=== PATIENT | male | born 1955 | race Caucasian/White ===

== ENCOUNTER → 2022-12-14 16:26 | Outpatient (REF) | payer MEDICARE, OTHER, SELFPAY | LOC: ANHLAB 16:26 | PROVIDERS: PCP Family Medicine; Visit Provider Plastic Surgery | DX: D48.5 Neoplasm of uncertain behavior of skin (principal) | CPT/HCPCS: 88305 ==

== ENCOUNTER 2023-01-14 13:23 | Emergency (ER) | payer MEDICARE, OTHER, SELFPAY ==
[2023-01-14 13:42] VITALS: BP 133/76; PULSE 84; RESP 18; TEMP 36.5; O2SAT 95
--- NOTE | 2023-01-14 13:42 | ED.URI ---
HPI - URI/Sore Throat General Chief Complaint: Upper Respiratory Infection Stated Complaint: chest congestion Time Seen by Provider: 01/14/23 13:50 Source: patient Mode of arrival: ambulatory Limitations: no limitations History of Present Illness HPI Narrative: There is a 67-year-old male patient presenting to the clinic today with complaints of cough and chest congestion x1 week. Reports he is having wheezing. Denies any shortness of breath or chest pain. Denies any fever or chills. States he is bringing up some clear phlegm and at times it may be green tinged. MD elicited complaint: sore throat and nasal congestion Related Data Home Medications Medication Instructions Recorded Confirmed ascorbate calcium (vitamin C) 500 500 mg PO DAILY 09/02/21 12/14/22 mg tablet cholecalciferol (vitamin D3) 25 25 mcg PO DAILY 09/02/21 12/14/22 mcg (1,000 unit) capsule inulin 2 gram chewable tablet g PO 09/02/21 12/14/22 (Fiber Gummies) orczdudshopq-kqe-mghyi acid-vit 1 tablet PO DAILY 09/02/21 12/14/22 K-lycop 400 mcg-20 mcg-370 mcg tablet (Men's 50 Plus Multivitamin) zinc acetate 50 mg (zinc) capsule 50 mg PO .every other day 09/02/21 12/14/22 (Galzin) Allergies Allergy/AdvReac Type Severity Reaction Status Date / Time No Known Allergies Allergy Unknown Verified 12/14/22 16:01 Review of Systems Review of Systems: Pertinent positives per HPI. Patient denies any fever, chills, rash, headache, visual changes, dizziness, shortness of breath, chest pain, palpitations, nausea, vomiting, diarrhea, constipation, abdominal pain, or any urinary issues. [facility] Past Medical History Medical History (Updated 01/14/23 @ 13:46 by Delbert Dent APRN) Changing skin lesion Cystic meniscus, other lateral meniscus, right knee Establishing care with new doctor, encounter for Inguinal bulge Screening for lipid disorders Screening for prostate cancer Surgical History Surgical History History of cholecystectomy Family History Family History Father Melanoma Grandparent Diabetes mellitus Social History Social History (Updated 12/14/22 @ 15:51 by Tamra Flores MA) Smoking status: Never smoker Alcohol intake: current Drinks per week: 2 Alcohol use details: beer Lack of Transportation: No Lack of Food: Never True Current Housing: I Have Housing Concerned About Future Housing: No Difficulty Paying Gas/Electric Bills: No Difficulty Paying for Meds: No Currently Unemployed: No Education: Master's Degree or Higher Difficulty w/ Childcare or Family Care: No Living arrangements: with family Occupation/Education: retired Gender identity (if verbalized by the patient): Male Sexual Orientation (if Verbalized by the Patient): Straight or Heterosexual Spiritual care concerns: No Agree to blood products: Yes Comments At the time of my signature, I reviewed and agree with the nursing past medical, surgical, social, and family history. There is no relevant family history pertinent to the patient complaint. Exam Narrative: General: Well-developed, well nourished, in no apparent distress Head: Normocephalic, atraumatic Eyes: Pupils equally round and reactive to light bilaterally, EOM intact, sclera and conjunctive clear, no discharge, lids normal Ears: TMs intact and clear, ear canals clear, no drainage, grossly hearing normal. Nose: Nares patent, no discharge, no inflammation, no sinus tenderness. Mouth: Oral pharynx without lesions or masses, good dentition, MMM. Neck: Supple, trachea midline, no enlargement of anterior or posterior cervical nodes, no thyroid masses or goiter palpable. Cardio: Regular rate and rhythm, s1 and s2 normal, no murmur appreciated. Resp: Expiratory wheezing throughout lung patterson, no rhonchi, rales, or rub
== END 2023-01-14 13:56 | disposition home or self-care (01) ==
PROVIDERS: Emergency Provider Nurse Practitioner Family; PCP Family Medicine
DX: J40 Bronchitis, not specified as acute or chronic (principal)
CPT/HCPCS: 99213; G0463

== ENCOUNTER 2023-01-22 09:20 | Emergency (ER) | payer MEDICARE, OTHER, SELFPAY ==
--- NOTE | ~2023-01-22 | XR_ITS ---
EXAMINATION: XR chest 2V DATE: 01/22/2023 10:51 INDICATION: Left lower lobe crackles. Cough. TECHNIQUE: Frontal and lateral views of the chest were obtained. COMPARISON: None. FINDINGS: There are airspace opacities in left lower lung zone. No pleural effusion or pneumothorax. The heart size is normal. Surgical clips in the right upper quadrant are likely from cholecystectomy. IMPRESSION: 1. Airspace opacities in left lower lung zone, consistent with atelectasis versus pneumonia. Reviewed, dictated and finalized at location A. STMENT SALES ASSISTANT IMPRESSION: 1. Airspace opacities in left lower lung zone, consistent with atelectasis vers us pneumonia.
[2023-01-22 09:59] VITALS: BP 139/88; PULSE 71; RESP 18; TEMP 36.4; O2SAT 96
--- NOTE | 2023-01-22 10:14 | ED.GENADULT ---
HPI - General Adult General Chief complaint: Upper Respiratory Infection Stated complaint: wheezing,congestion History of Present Illness HPI narrative: 67-year-old male patient [facility] today with complaints of continuing productive cough with yellow phlegm, wheezing, and feeling unwell. patient was seen here on 01/14 and diagnosed with acute bronchitis and was prescribed a 5 day course of prednisone and an albuterol inhaler. Patient states he has been using albuterol inhaler every 4-6 hours daily while awake and finished his prednisone treatment. patient states that he thought he was feeling better after the prednisone but then has continued to worsen after the dose pack was completed. Patient denies fevers, chills, body aches, dyspnea, nausea/ vomiting, and diarrhea. patient confirms shortness of breath when coughing. Related Data Home Medications Medication Instructions Recorded Confirmed ascorbate calcium (vitamin C) 500 500 mg PO DAILY 09/02/21 01/22/23 mg tablet cholecalciferol (vitamin D3) 25 25 mcg PO DAILY 09/02/21 01/22/23 mcg (1,000 unit) capsule inulin 2 gram chewable tablet 2 g PO DAILY 09/02/21 01/22/23 (Fiber Gummies) bijvpzotlsds-bht-nokgw acid-vit 1 tablet PO DAILY 09/02/21 01/22/23 K-lycop 400 mcg-20 mcg-370 mcg tablet (Men's 50 Plus Multivitamin) zinc acetate 50 mg (zinc) capsule 50 mg PO .every other day 09/02/21 01/22/23 (Galzin) Allergies Allergy/AdvReac Type Severity Reaction Status Date / Time No Known Allergies Allergy Unknown Verified 01/22/23 09:56 Review of Systems Review of Systems: CONSTITUTIONAL: Denies fever, chills, or sweats. patient reports overall general unwell feeling. EYES: Denies visual changes, redness, or discharge. ENT: Denies rhinorrhea, congestion, sore throat, or otalgia. CARDIOVASCULAR: Denies chest pain, palpitations, or edema. RESPIRATORY: positive productive cough and dyspnea when coughing, positive wheezing. reports using albuterol inhaler every 4-6 hours while awake. GASTROINTESTINAL: Denies abdominal pain, nausea, vomiting, or diarrhea. GENITOURINARY: Denies dysuria or hematuria. SKIN: Denies rash or itching. MUSCULOSKELETAL: Denies back pain, joint pain, or myalgia. NEUROLOGIC: Denies headache, numbness, or weakness. PSYCHIATRIC: Denies anxiety or depression. [facility], [facility] Past Medical History Medical History (Updated 01/22/23 @ 11:08 by PHUONG Bazan) Changing skin lesion Cystic meniscus, other lateral meniscus, right knee Establishing care with new doctor, encounter for Inguinal bulge Screening for lipid disorders Screening for prostate cancer Surgical History Surgical History History of cholecystectomy Family History Family History Father Melanoma Grandparent Diabetes mellitus Social History Social History (Updated 12/14/22 @ 15:51 by Tamra Flores MA) Smoking status: Never smoker Alcohol intake: current Drinks per week: 2 Alcohol use details: beer Lack of Transportation: No Lack of Food: Never True Current Housing: I Have Housing Concerned About Future Housing: No Difficulty Paying Gas/Electric Bills: No Difficulty Paying for Meds: No Currently Unemployed: No Education: Master's Degree or Higher Difficulty w/ Childcare or Family Care: No Living arrangements: with family Occupation/Education: retired Gender identity (if verbalized by the patient): Male Sexual Orientation (if Verbalized by the Patient): Straight or Heterosexual Spiritual care concerns: No Agree to blood products: Yes Exam Narrative: GENERAL: ill-appearing, well-nourished, and in no acute distress. HEAD: Normocephalic, atraumatic. EYES: PERRLA and EOMI. ENT: Nares clear, no rhinorrhea or epistaxis. Mucous membranes moist. NECK: Supple. No lymphadenopat
== END 2023-01-22 11:12 | disposition home or self-care (01) ==
PROVIDERS: Emergency Provider Nurse Practitioner Family; PCP Family Medicine
DX: J18.9 Pneumonia, unspecified organism (principal); Z79.899 Other long term (current) drug therapy; Z79.4 Long term (current) use of insulin
CPT/HCPCS: 71046; 99213; G0463

== ENCOUNTER 2023-02-13 09:44 | Outpatient (CLI) | payer MEDICARE, OTHER, SELFPAY ==
--- NOTE | ~2023-02-13 | XR_ITS ---
EXAMINATION: XR chest 2V DATE: 02/13/2023 10:01 INDICATION: Chronic cough TECHNIQUE: PA and lateral views of the chest are obtained. COMPARISON: 01/22/2023 FINDINGS: The lungs are free of acute opacities. No pleural effusion or pneumothorax. The cardiomedia stinal silhouette is normal. There is moderate thoracic spondylosis. Surgical clips in the right uppe r quadrant are likely from prior cholecystectomy. IMPRESSION: 1. No acute cardiopulmonary abnormality. Reviewed, dictated and finalized at location B. HASING ANALYST
== END 2023-02-13 09:45 | disposition home or self-care (01) ==
PROVIDERS: PCP Family Medicine; Visit Provider Family Medicine
DX: R05.3 Chronic cough (principal)
CPT/HCPCS: 71046

== ENCOUNTER 2023-04-18 01:38 | Day surgery (SDC) | payer MEDICARE, OTHER, SELFPAY ==
[2023-03-23 10:10] VITALS: BMI 29.8
[2023-04-18 08:08] VITALS: BP 132/93; PULSE 88; RESP 18; TEMP 36.5; O2SAT 97; BMI 30.8
[2023-04-18] MEDS: LACTATED RINGERS 1,000 ML 150 ML IV CONT (08:47)
--- NOTE | 2023-04-18 09:14 | PM.HPGS ---
History of Present Illness History of Present Illness Consent: Risks, benefits, and alternatives have been discussed and questions answered. Patient agrees to proceed with procedure. Chief complaint: neoplasm screening Narrative: Naveed Welch is a 68 year old male with colon polyp 5 years ago Review of Systems Constitutional: Constitutional: Denies headache(s) and Denies weakness Eyes: Eyes: Denies blurry vision ENT: Reports Normal hearing present, Denies headache(s) and Denies neck pain Cardiovascular: Cardiovascular: Denies chest pain and Denies dyspnea Respiratory: Respiratory: Denies dyspnea Gastrointestinal: Gastrointestinal: Reports no additional gastrointestinal complaints Genitourinary: Genitourinary: Denies dysuria Musculoskeletal: Musculoskeletal: Denies neck pain Integumentary/Breasts: Skin/Breast: Denies dry skin Neurologic: Reports Normal hearing present, Denies headache(s) and Denies weakness Psychiatric: Psychiatric: Denies anxiety Endocrine: Endocrine: Denies change in body appearance Hematologic/Lymphatic: Hematologic/Lymphatic: Denies easy bleeding Allergic/Immunologic: Allergic/Immunologic: Denies urticaria PMFSH Past Medical History Medical History (Updated 04/18/23 @ 09:14 by Gordo Rosario MD) BMI 31.0-31.9,adult Changing skin lesion Chronic cough Colon polyp Cystic meniscus, other lateral meniscus, right knee Establishing care with new doctor, encounter for Inguinal bulge Left hand pain Screening for lipid disorders Screening for prostate cancer Trigger middle finger of left hand Surgical History Surgical History History of cholecystectomy Family History Family History Father Melanoma Multiple myeloma Grandparent Diabetes mellitus Mother No problems noted. Sibling No problems noted. 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 Gender identity (if verbalized by the patient): Male Sexual Orientation (if Verbalized by the Patient): Straight or Heterosexual Spiritual care concerns: No Agree to blood products: Yes Meds Home Medications and Allergies Home Medications Medication Instructions Recorded Confirmed Type ascorbate calcium (vitamin C) 500 500 mg PO DAILY 09/02/21 04/18/23 History mg tablet inulin 2 gram chewable tablet 2 g PO DAILY 09/02/21 04/18/23 History (Fiber Gummies) cvytxrayotdw-wkh-moqsz acid-vit 1 tablet PO DAILY 09/02/21 04/18/23 History K-lycop 400 mcg-20 mcg-370 mcg tablet (Men's 50 Plus Multivitamin) zinc acetate 50 mg (zinc) capsule 50 mg PO .every other day 09/02/21 04/18/23 History (Galzin) Allergies Allergy/AdvReac Type Severity Reaction Status Date / Time No Known Allergies Allergy Unknown Verified 04/18/23 08:16 Vital Signs Vital Signs - 24 hr 04/18/23 08:08 Temperature 97.7 F Pulse Rate 88 Respiratory Rate 18 Blood Pressure 132/93 H Pulse Oximetry 97 Oxygen Delivery Room Air Exam Const: General: comfortable and no acute distress HENMT: Face/Nose/Sinus: Normal nares present Eyes: General: appearance normal, both eyes and all related structures
--- NOTE | 2023-04-18 09:20 | WPDANESEPPF ---
Anes - Initial Pre Proc Eval Procedure: Operation Date: 04/18/23 09:30 Proposed Procedures p Screening Colonoscopy - Gordo Rosario MD Date/Time: 04/18/23 09:20 Surgeon: Gordo Rosario MD Pre Op Diagnosis: neoplasm screening Patient Data Age: 68 Gender: M Height: 1.7 m Weight: 89.3 kg Last Vital Signs Temp 97.7 F 04/18/23 08:08 Pulse 88 04/18/23 08:08 Resp 18 04/18/23 08:08 BP 132/93 H 04/18/23 08:08 Pulse Ox 97 04/18/23 08:08 O2 Del Method Room Air 04/18/23 08:08 Allergies Allergy/AdvReac Type Severity Reaction Status Date / Time No Known Allergies Allergy Unknown Verified 04/18/23 08:16 Home Medications Medication Instructions Recorded Confirmed Type ascorbate calcium (vitamin C) 500 500 mg PO DAILY 09/02/21 04/18/23 History mg tablet inulin 2 gram chewable tablet 2 g PO DAILY 09/02/21 04/18/23 History (Fiber Gummies) fwvcwidnepyh-dbh-fzzee acid-vit 1 tablet PO DAILY 09/02/21 04/18/23 History K-lycop 400 mcg-20 mcg-370 mcg tablet (Men's 50 Plus Multivitamin) zinc acetate 50 mg (zinc) capsule 50 mg PO .every other day 09/02/21 04/18/23 History (Galzin) Patient hx anesthesia problems: none Family hx anesthesia problems: none Results Review: All pre-operative results and documents have been reviewed as part of the pre-operative evaluation. [facility] Past Medical History Medical History (Updated 04/18/23 @ 09:14 by Gordo Rosario MD) BMI 31.0-31.9,adult Changing skin lesion Chronic cough Colon polyp Cystic meniscus, other lateral meniscus, right knee Establishing care with new doctor, encounter for Inguinal bulge Left hand pain Screening for lipid disorders Screening for prostate cancer Trigger middle finger of left hand Surgical History Surgical History History of cholecystectomy Family History Family History Father Melanoma Multiple myeloma Grandparent Diabetes mellitus Mother No problems noted. Sibling No problems noted. 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 Gender identity (if verbalized by the patient): Male Sexual Orientation (if Verbalized by the Patient): Straight or Heterosexual Spiritual care concerns: No Agree to blood products: Yes Anes - Eval Final PreProcedure Day of Procedure 04/18/23 09:20 Patient weight: obese Heart: regular rate and rhythm Lungs: clear to auscultation Airway: Mallampati scale class II Neurological: alert and oriented Last oral intake: >/= 8 hours ASA classification: II Emergent: no Anesthetic plan: proceed Anesthesia type and monitoring: general GIVS and standard monitoring Results Review: All pre-operative results and documents have been reviewed as part of the pre-operative evaluation. Informed Consent: The patient's anesthetic plan and its attendant risks and benefits were discussed with the patient/family/POA. Questions were solicited and answers provided to the satisfaction of the patient/family/POA.
[2023-04-18 09:38] VITALS: BP 96/65; PULSE 83; RESP 15; O2SAT 95
[2023-04-18 09:48] VITALS: BP 110/84; PULSE 95; RESP 23; O2SAT 99
[2023-04-18 09:58] VITALS: BP 119/85; PULSE 85; RESP 19; O2SAT 98
== END 2023-04-18 10:15 | disposition home or self-care (01) ==
PROVIDERS: PCP Family Medicine; Visit Provider Internal Medicine Gastroenterology
PROC: 0DJD8ZZ Inspection of Lower Intestinal Tract, Via Natural or Artificial Opening Endoscopic (ICD-10-PCS; CPT 45378; principal; 2023-04-18 09:30)
DX: Z12.11 Encounter for screening for malignant neoplasm of colon (principal); Z86.010 Personal history of colon polyps; E66.9 Obesity, unspecified; Z68.30 Body mass index [BMI] 30.0-30.9, adult
CPT/HCPCS: G0105; J2704; J7120

== ENCOUNTER 2023-07-25 16:39 | Emergency (ER) | payer MEDICARE, OTHER, SELFPAY ==
[2023-07-25 16:40] VITALS: BP 152/96; PULSE 76; RESP 20; TEMP 36.6; O2SAT 96
--- NOTE | 2023-07-25 17:32 | ED.GENADULT ---
HPI - General Adult General Chief complaint: Wound/Laceration Stated complaint: nasal injury Time Seen by Provider: 07/25/23 16:58 Source: patient Mode of arrival: ambulatory Limitations: no limitations History of Present Illness HPI narrative: This is a 68-year-old male who presents to the ED with chief complaint of nose laceration injury that occurred just prior to arrival. Patient was unloading a smoker out of the back of a truck. Reports that he lost his strategy director and a came down and gas to his nose. Denies any further sites of pain or injury. Denies LOC. Denies blood thinner use Related Data Home Medications Medication Instructions Recorded Confirmed ascorbate calcium (vitamin C) 500 500 mg PO DAILY 09/02/21 06/30/23 mg tablet inulin 2 gram chewable tablet 2 g PO DAILY 09/02/21 06/30/23 (Fiber Gummies) nizzxqumpvpm-enh-uxyni acid-vit 1 tablet PO DAILY 09/02/21 06/30/23 K-lycop 400 mcg-20 mcg-370 mcg tablet (Men's 50 Plus Multivitamin) Allergies Allergy/AdvReac Type Severity Reaction Status Date / Time No Known Allergies Allergy Unknown Verified 07/25/23 17:22 Review of Systems Review of Systems: All systems as dictated in HPI [facility] Past Medical History Medical History BMI 31.0-31.9,adult BMI 32.0-32.9,adult Changing skin lesion Chronic cough Colon polyp Cystic meniscus, other lateral meniscus, right knee Elevated PSA Establishing care with new doctor, encounter for Inguinal bulge Inguinal hernia Left hand pain Screening for lipid disorders Screening for prostate cancer Trigger middle finger of left hand Surgical History Surgical History History of cholecystectomy Family History Family History Father Melanoma Multiple myeloma Grandparent Diabetes mellitus Mother No problems noted. Sibling No problems noted. 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 HEAD: Normocephalic, atraumatic. MSK: Normal range of motion. No edema. SKIN: 1.5 cm flap laceration to the left distal nose, no active bleeding. Warm, dry, no rash. NEURO: Alert and oriented x3. No focal deficits. PSYCH: Normal mood and affect. Course Vital Signs Vital signs: Vital Signs Temperature 97.9 F 07/25/23 16:40 Pulse Rate 76 07/25/23 16:40 Respiratory Rate 20 07/25/23 16:40 Blood Pressure 152/96 H 07/25/23 16:40 Pulse Oximetry 96 07/25/23 16:40 Oxygen Delivery Room Air 07/25/23 16:40 Temperature 97.9 F 07/25/23 16:40 Pulse Rate 76 07/25/23 16:40 Respiratory Rate 20 07/25/23 16:40 Blood Pressure 152/96 H 07/25/23 16:40 Pulse Oximetry 96 07/25/23 16:40 Oxygen Delivery Room Air 07/25/23 16:40 Procedures Laceration Laceration 1: Date: 07/25/23 Time: 17:52 Sit
== END 2023-07-25 18:05 | disposition home or self-care (01) ==
PROVIDERS: Emergency Provider Physician Assistant; PCP Family Medicine
DX: S01.21XA Laceration without foreign body of nose, initial encounter (principal); Z86.010 Personal history of colon polyps; W20.8XXA Other cause of strike by thrown, projected or falling object, initial encounter
CPT/HCPCS: 12011; 99282

== ENCOUNTER 2023-08-08 16:50 | Emergency (ER) | payer MEDICARE, OTHER, SELFPAY ==
--- NOTE | ~2023-08-08 | XR_ITS ---
EXAMINATION: XR chest 2V Exam Date/Time: 08/08/2023 17:04 CDT HISTORY: cough, sob for 3 days,never smoker Comparison: 02/13/2023, 01/22/2023. RESULT: Lines, tubes, and devices: Cholecystectomy clips. Lungs and pleura: Left basilar scar/atelectasis. 9 mm nodular opacity in the right midlung. No focal consolidation, pleural effusion, or pneumothorax. Cardiomediastinal silhouette: Stable. Other: No acute osseous or upper abdominal finding. IMPRESSION: No acute cardiopulmonary process. 9 mm right midlung nodular opacity, may represent a pulmonary nodule, rib bone island, or old healed rib fracture. Consider nonemergent but timely outpatient low-dose noncontrast CT of the chest for fur ther evaluation. Reviewed, dictated and finalized at [facility]. IMPRESSION: No acute cardiopulmonary process. 9 mm right midlung nodular opacity, may represent a pulmonary nodule, rib bone island, or old healed rib fracture. Consider nonemergent but timely outpatient low-dose noncontrast CT of the chest for further evaluation.
--- NOTE | 2023-08-08 16:52 | ED.URI ---
HPI - URI/Sore Throat General Chief Complaint: Upper Respiratory Infection Stated Complaint: wheezing Time Seen by Provider: 08/08/23 17:05 Source: patient and RN notes reviewed Mode of arrival: ambulatory Limitations: no limitations History of Present Illness HPI Narrative: 68-year-old male presents with concern for cough, chest congestion, nasal drainage and nasal congestion for 4 days. Reports history of pneumonia. Reports he has been taking Mucinex MD elicited complaint: cough Related Data Home Medications Medication Instructions Recorded Confirmed ascorbate calcium (vitamin C) 500 500 mg PO DAILY 09/02/21 08/08/23 mg tablet zhasbqjtmqic-kpx-xfjkg acid-vit 1 tablet PO DAILY 09/02/21 08/08/23 K-lycop 400 mcg-20 mcg-370 mcg tablet (Men's 50 Plus Multivitamin) inulin 2,500 mg-vitamin D3 500 1 tablet PO .QD 08/03/23 08/08/23 unit chewable tablet (Fiber Gummies with Vitamin D3) Allergies Allergy/AdvReac Type Severity Reaction Status Date / Time No Known Allergies Allergy Unknown Verified 08/08/23 16:53 Review of Systems Review of Systems: CONSTITUTIONAL: Reports malaise. Denies chills, sweats, or fever. EYES: Denies visual changes, redness, or discharge. ENT: Reports rhinorrhea, congestion. Denies sinus pain, otalgia and sore throat. CARDIOVASCULAR: Denies chest pain, palpitations, or edema. RESPIRATORY: Reports cough, chest congestion, dyspnea. GASTROINTESTINAL: Denies abdominal pain, nausea, vomiting, diarrhea SKIN: Denies rash or itching. MUSCULOSKELETAL: Denies myalgia. NEUROLOGIC: Denies headache. All systems reviewed & are unremarkable except as noted in HPI and below PMFSH Past Medical History Medical History (Updated 08/08/23 @ 17:31 by Virginia Perera NP) BMI 32.0-32.9,adult Changing skin lesion Chronic cough Colon polyp Cystic meniscus, other lateral meniscus, right knee Elevated PSA Establishing care with new doctor, encounter for Inguinal bulge Inguinal hernia Left hand pain Nasal laceration Screening for lipid disorders Screening for prostate cancer Trigger middle finger of left hand Surgical History Surgical History History of cholecystectomy Family History Family History Father Melanoma Multiple myeloma Grandparent Diabetes mellitus Mother No problems noted. Sibling No problems noted. 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 There is no relevant family history pertinent to the presenting complaint Exam Narrative: GENERAL: Nontoxic-appearing, well-nourished, and in no acute distress. HEAD: Normocephalic EYES: PERRLA, conjunctivae clear ENT: Nares clear. Mucous membranes moist. TM pearly hayden with dull light reflex bilaterally; no tragal tenderness. Oropharynx not erythematous without lesions. Tonsils not enlarged
[2023-08-08 16:59] VITALS: BP 142/91; PULSE 70; RESP 16; TEMP 36.7; O2SAT 97
== END 2023-08-08 17:35 | disposition home or self-care (01) ==
PROVIDERS: Emergency Provider Nurse Practitioner; PCP Family Medicine
DX: R05.9 Cough, unspecified (principal)
CPT/HCPCS: 71046; 99213; G0463

== ENCOUNTER 2023-08-29 07:25 | Outpatient (CLI) | payer MEDICARE, OTHER, SELFPAY ==
--- NOTE | ~2023-08-29 | CT_ITS ---
EXAMINATION:CT diagnostic chest w con DATE: 08/29/2023 07:52 INDICATION: Solitary pulmonary nodule. Abnormal chest radiograph. TECHNIQUE: Computed tomography (CT) of the chest was performed with 75 mL Omnipaque 350 intravenous c ontrast. Automated exposure control and iterative reconstruction technique were employed. The dose-le ngth product (DLP) was 378.43 mGy-cm. COMPARISON: Chest 2 views 08/08/2023 FINDINGS: The lungs demonstrate minimal atelectasis. There is no abnormal correlate for the chest rad iograph finding. There is a 6 mm nodule in right lower lobe. No pleural effusion. The heart size is n ormal. No pericardial effusion. 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 There is mild b ilateral gynecomastia. There are changes of cholecystectomy. There is mild thoracic spondylosis. Ther e is mild chronic anterior wedging of multiple vertebral bodies. IMPRESSION: 1. 6 mm pulmonary nodule, probably benign. Consider noncontrast low-dose chest CT in 6-12 months. Reviewed, dictated and finalized at location A.
[2023-08-29 07:46] LABS: Estimated Glomerular Filt Rate > 60
== END 2023-08-29 07:26 | disposition home or self-care (01) ==
PROVIDERS: PCP Family Medicine; Visit Provider Physician Assistant Medical
DX: R91.1 Solitary pulmonary nodule (principal)
CPT/HCPCS: 71260; Q9967

== ENCOUNTER 2024-09-03 08:51 | Outpatient (CLI) | payer MEDICARE, OTHER, SELFPAY ==
--- NOTE | ~2024-09-03 | CT_ITS ---
CT of the Abdomen and Pelvis: Indication: Aortic ectasia Technique: 2.5 mm axial scans were obtained through the abdomen and pelvis following intravenous adm inistration of 100 cc of Omnipaque 350. Dose reduction technique was used on this scan by utilizing a utomated exposure control and iterative reconstruction technique. The dose-length product (DLP) was 6 69.63 mGy-cm. Findings: Scans through the lung bases are unremarkable. The liver, spleen, pancreas, adrenals and kidneys are within normal limits. Cholecystectomy clips are present. No evidence of aortic aneurysm or dissection. There is minimal atherosclerotic calcificatio n of the abdominal aorta. No lymphadenopathy. No bowel obstruction or bowel wall thickening. There is no evidence to suggest acute appendicitis. Images through the pelvis were performed. Urinary bladder unremarkable. Prostate gland is significant ly enlarged. No ascites. Impression: Minimal atherosclerotic disease of the aorta. No aneurysm or dissection. Enlarged prostate gland. Reviewed, dictated and finalized at location . Impression: Minimal atherosclerotic disease of the aorta. No aneurysm or dissection. Enlarged prostate gland.
--- NOTE | ~2024-09-03 | CT_ITS ---
Clinical Indication: Pulmonary nodule CT Scan of the Chest with Contrast: Technique: Contiguous sections were acquired throughout the chest after intravenous administration of 75 cc of Omnipaque 350. Dose reduction technique was used on this scan by utilizing automated exposu re control and iterative reconstruction technique. The dose-length product (DLP) was 0.00 mGy-cm. COMPARISON: 08/29/2023 Findings: There is no evidence of any significant mediastinal, hilar or axillary lymphadenopathy. Vascular stru ctures are unremarkable. There is no evidence of aortic dissection or aneurysm. There is no evidence of pleural or pericardial effusion. Stable 6 mm nodule the right peripheral right lung base (axial image 95).. Images through the upper abdomen reveal no abnormalities. Impression: Stable 6 mm right basilar pulmonary nodule, as detailed above. Reviewed, dictated and finalized at [facility]. Impression: Stable 6 mm right basilar pulmonary nodule, as detailed above.
--- OUTSIDE RECORDS SUMMARY | 2024-09-03 08:59 | XMS_ITS | Clinical Summary ---
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 Legal Sex Male 8:00 PM CDT Gender Identity Male 02/06/2023 3:12 PM 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 PAINTER Sexual Orientation Not on file Last Filed Vital Signs Vital Sign Reading Time Taken Comments Blood Pressure - - Pulse - - Temperature - - Respiratory Rate - - Oxygen Saturation - - Inhaled Oxygen Concentration - - Weight 86.2 kg (190 lb) 02/02/2023 4:31 PM PORTRAIT PAINTER Height 170.2 cm (5' 7) 02/02/2023 4:31 PM PORTRAIT PAINTER Body Mass Index 29.76 02/02/2023 4:31 PM PORTRAIT PAINTER Plan of Treatment Health Maintenance Due Date Last Done Comments Colorectal Cancer Screening Colonoscopy (10 Years) 1955 Hepatitis C 01/25/1974 DTaP, Tdap and Td Vaccines ( 1 - Tdap) 01/25/1975 Pneumococcal Vaccine: 50+ Ye ars (1 of 1 - PCV) 01/25/2006 Zoster Vaccines (1 of 2) 01/25/2006 Annual Medicare Wellness Visit 01/25/2021 COVID-19 Vaccine (2 - 2023-2 5 season) 2023 11/02/2020 RSV Immunization or 60+ Years (1 - 1-dose 75+ series) 01/25/2031 Meningococcal B Vaccine Aged Out No l onger eligible based on patient's age to complete this topic Meningococcal Vaccine Aged Out No tanna feroz eligible based on patient's age to complete this topic RSV Immunizations Under 20 Months Aged Out No longer eligible based on patient's age to complete this topic Insurance MEDICARE
[2024-09-03 09:25] LABS: Estimated Glomerular Filt Rate > 60
== END 2024-09-03 08:52 | disposition home or self-care (01) ==
PROVIDERS: PCP Family Medicine; Visit Provider Physician Assistant Medical
DX: I77.819 Aortic ectasia, unspecified site (principal); R91.1 Solitary pulmonary nodule; N40.0 Benign prostatic hyperplasia without lower urinary tract symptoms
CPT/HCPCS: 71260; 74174; Q9967